=== PATIENT | female | born 1990 | race Caucasian/White ===

== ENCOUNTER 2020-09-28 16:38 | Inpatient (IN) | payer OTHER ==
[~2020-09-28] VITALS: Ht 162.6 cm; Wt 90.7 kg
[2020-09-28] MEDS ORDERED: PRENATABS FA T1 EACH PO (17:47)
[2020-09-28 18:07] LABS: HEMOGLOBIN 12.5 gm/dl (12.3-15.3); RED BLOOD COUNT 3.88 M/UL (4.00-5.10); WHITE BLOOD COUNT 9.4 K/UL (4.5-11.0)
[2020-09-30] MEDS ORDERED: IBUPROFEN800 MG PO (16:00)
[2020-09-30] MEDS ORDERED: TYLENOL EXTRA500 MG PO (16:00)
[2020-09-30] MEDS ORDERED: DOCUSATE SODIU100 MG PO (16:00)
== END 2020-10-01 17:25 | disposition home or self-care (01) | DRG 807 ==
LOC: GENOP 16:38 → OB 17:53
PROVIDERS: Obstetrics & Gynecology; ADMIT Obstetrics & Gynecology
PROC: 10E0XZZ Delivery of Products of Conception, External Approach (ICD-10-PCS; principal; 2020-09-28)
PROC: 10907ZC Drainage of Amniotic Fluid, Therapeutic from Products of Conception, Via Natural or Artificial Opening (ICD-10-PCS; 2020-09-28)
PROC: 3E033VJ Introduction of Other Hormone into Peripheral Vein, Percutaneous Approach (ICD-10-PCS; 2020-09-28)
PROC: 10H07YZ Insertion of Other Device into Products of Conception, Via Natural or Artificial Opening (ICD-10-PCS; 2020-09-28)
DX: O80 Encounter for full-term uncomplicated delivery (principal); Z37.0 Single live birth; Z3A.39 39 weeks gestation of pregnancy
CPT/HCPCS: 36415; 51702; 81001; 82800; 85014; 85018; 85025; 90471; 90715; J0595; J2405; J2590; J7120; U0003